=== PATIENT | male | born 2000 | race Hispanic/Latino ===

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

== ENCOUNTER 2022-04-18 21:53 | Emergency (ER) | payer SELFPAY ==
[~2022-04-18 21:53] MED LIST: Iopamidol 370 76% 100 ML VIAL ONE
[2022-04-18 22:36] LABS: #Basophils 0.1 thou/uL (0.0-0.2); #Eosinphils 0.6 thou/uL (0.0-0.7); #Lymphocytes 2.4 thou/uL (1.20-3.40); #Monocytes 0.6 thou/uL (0.11-0.59); #Neutrophils 5.3 thou/uL (1.40-6.50); %Basophils 0.7 % (0.0-1.0); %Eosinophils 6.4 % (0.0-10.0); %Lymphocytes 26.7 % (28.0-48.0); %Monocytes 6.7 % (0.0-4.0); %Neutrophils 59.5 % (31.0-61.0); Hemoglobin 15.2 g/dL (14.0-18.0); Mean Corpuscular HGB CONC 34.1 g/dL (32.0-36.0); Mean Corpuscular Hemoglobin 31.4 pg (25.0-35.0); Mean Corpuscular Volume 92.1 fl (78.0-98.0); Mean Platelet Volume 7.4 fL (7.4-10.4); Platelet Count 287 10x3/uL (130-400); RBC Distribution Width 12.2 % (11.5-14.5); Red Blood Cell (RBC) Count 4.85 mill/uL (4.00-5.20)
[2022-04-18 23:17] LABS: ALT (SGPT) 20 U/L (8-55); AST (SGOT) 12 U/L (5-34); Albumin 4.1 g/dL (3.5-5.0); Alkaline Phosphatase 169 U/L (50-130); BUN (Urea Nitrogen) 13 mg/dL (8.9-20.6); Bilirubin, Total 0.3 mg/dL (0.2-1.2); Calc. Creatinine Clearance 0 mL/min (70-130); Calcium 9.2 mg/dL (7.8-10.44); Carbon Dioxide 24 mmol/L (22-29); Chloride 106 mmol/L (98-107); Estimated GFR 126; Globulin 3.3 g/dL (2.4-3.5); Glucose 134 mg/dL (70-105); Potassium 3.6 mmol/L (3.5-5.1); Protein, Total 7.4 g/dL (6.0-8.3); Sodium 139 mmol/L (136-145)
[2022-04-18 23:19] LABS: Anion Gap 13 mmol/L (10-20)
== END 2022-04-19 05:42 | disposition home or self-care (01) ==
LOC: ERS 21:53
DX: L02.31 Cutaneous abscess of buttock (principal)
CPT/HCPCS: 36415; 74177; 80053; 83605; 85025; Q9967

== ENCOUNTER 2023-03-22 16:46 | Emergency (ER) | payer SELFPAY ==
[2023-03-22] MEDS ORDERED: Bicillin LA 1.2 MILLION UNITS/2 ML SYRINGE ONE (18:08)
[2023-03-22] MEDS ORDERED: Dexamethasone 10 MG/ML VIAL ONE (18:08)
[2023-03-22] MEDS ORDERED: Benzocaine 20% Spray 60 ML CAN ONE (18:54)
== END 2023-03-22 18:57 | disposition home or self-care (01) ==
LOC: ERS 16:46
DX: J02.0 Streptococcal pharyngitis (principal)
CPT/HCPCS: 87430; 96372; 99283; J0561; J1100

== ENCOUNTER 2023-04-24 14:07 | Emergency (ER) | payer SELFPAY | END 2023-04-24 15:02 | disposition home or self-care (01) | LOC: ERS 14:07 | DX: L02.214 Cutaneous abscess of groin (principal) | CPT/HCPCS: 99282 ==